=== PATIENT | female | born 1980 | race Caucasian/White ===

== ENCOUNTER → 2017-03-01 | Outpatient (CLI) | payer OTHER | LOC: CIMAGING 08:21 | DX: M79.631 Pain in right forearm (principal) | CPT/HCPCS: 73110-PO ==

== ENCOUNTER → 2018-03-15 | Outpatient (CLI) | payer OTHER | LOC: CIMAGING 17:06 | DX: Z13.6 Encounter for screening for cardiovascular disorders (principal); R19.00 Intra-abdominal and pelvic swelling, mass and lump, unspecified site ==